=== PATIENT | female | born 1990 | race Caucasian/White ===

== ENCOUNTER 2022-04-18 21:20 | Emergency (ER) | payer OTHER, SELFPAY ==
[2022-04-18] MEDS ORDERED: KETOROLAC 30 MG/ML INJ ONE (21:53)
[2022-04-18] MEDS ORDERED: LIDOCAINE 4% PATCH ONE (23:39)
--- NOTE | 2022-04-18 23:56 | EDPHYS ---
Physician Documentation [facility] Name: Marimar Guo Age: 31 yrs Sex: Female : 1990 Arrival Date: 04/18/2022 Time: 21:26 Bed 6 Private MD: ED Physician Brant Valente HPI: 04/18 22:00 This 31 yrs old Female presents to ER via Ambulatory with complaints of Shoulder Pain, cp Neck Pain, >24Hrs Old. 22:00 The patient or guardian complains of pain, that is acute. cp 22:00 left shoulder. Context: The patient reports no decreased range of motion. The patient cp reports no obvious deformity. Patient reports falling asleep while breast feeding child and having pain after waking. Onset: The symptoms/episode began/occurred 2 day(s) ago. Modifying factors: The symptoms are aggravated by movement. Associated signs and symptoms: Pertinent positives: chest pain, neck pain, Pertinent negatives: abdominal pain, dyspnea, Numbness in left hand and left arm Weakness in left hand and left arm. Severity of symptoms: in the emergency department the symptoms are unchanged, despite home interventions. Historical: - Allergies: 21:32 No Known Allergies; as6 - Home Meds: 21:32 None [Active]; as6 - PMHx: 21:32 None; as6 - PSHx: 21:32 D\T\C; as6 - Immunization history:: Client reports having NOT received the Covid vaccine. - Social history:: Smoking status: Reported history of juuling and/or vaping. ROS: 22:05 Constitutional: Negative for body aches, chills, fever, poor PO intake. cp 22:05 Eyes: Negative for injury, pain, redness, and discharge. cp 22:05 ENT: Negative for drainage from ear(s), ear pain, sore throat, difficulty swallowing, difficulty handling secretions. 22:05 Neck: Positive for pain with movement, pain at rest, stiffness, Negative for injury or acute deformity. 22:05 Cardiovascular: Positive for chest pain. 22:05 Respiratory: Negative for cough, shortness of breath, wheezing. 22:05 Abdomen/GI: Negative for abdominal pain, nausea and vomiting. 22:05 Neuro: Negative for 22:05 All other systems are negative. Exam: 22:10 Constitutional: The patient appears in no acute distress, alert, awake, cp non-diaphoretic, non-toxic, well developed, well nourished. 22:10 Head/Face: Normocephalic, atraumatic. cp 22:10 Eyes: Periorbital structures: appear normal, Conjunctiva: normal, no exudate, no injection, Sclera: no appreciated abnormality, Lids and lashes: appear normal, bilaterally. 22:10 ENT: External ear(s): are unremarkable, Nose: is normal, Mouth: Lips: moist, Oral mucosa: pink and intact, moist, Posterior pharynx: Airway: no evidence of obstruction, patent. 22:10 Neck: ROM/movement: is normal, is supple, without pain, no range of motions limitations, no nuchal rigidity. 22:10 Chest/axilla: Inspection: normal, Palpation: crepitus, is not appreciated, tenderness, is not appreciated. 22:10 Cardiovascular: Rate: normal, Rhythm: regular, Pulses: Pulses are 2+ in right radial artery and left radial artery. JVD: is not appreciated. 22:10 Respiratory: the patient does not display signs of respiratory distress, Respirations: normal, no use of accessory muscles, no retractions, labored breathing, is not present, Breath sounds: are clear throughout, no decreased breath sounds, no stridor, no wheezing. 22:10 Abdomen/GI: Inspection: abdomen appears normal, Palpation: abdomen is soft and non-tender, in all quadrants. 22:10 Back: pain, that is moderate, of the left trapezius and left scapular area, ROM is painful, with all movement. 22:10 Musculoskeletal/extremity: Extremities: grossly normal except: noted in the left shoulder: pain, tenderness, There is no evidence of decreased ROM, deformity, ROM: full passive range of motion, in the left shoulder, limited passive range of motion due to pain, in the left shoulder, the left hand and left arm Sensation intact. 22:10 Skin: cellulitis, is not appreciated, no rash present. 22:10 Neuro: Orientation: to person, place \T\ time. Mentation: is normal, Motor: moves all fours, strength is normal, Sensation: is normal. Vital Signs: 00:00 BP 100 / 62; Pulse 65; Resp 17; Pulse Ox 100% on R/A; ll3 21:28 BP 113 / 73; Pulse 89; Resp 18 S; Temp 97.8(O); Pulse Ox 100% on R/A; Weight 63.5 kg as6 (R); Height 5 ft. 5 in. (165.10 cm) (R); Pain 8/10; 22:07 BP 100 / 60; kl 21:28 Body Mass Index 23.30 (63.50 kg, 165.10 cm) as6 MDM: 21:38 Patient medically screened. cp 22:00 Differential diagnosis: tendonitis, muscle strain, pneumothorax. cp 23:55 Data reviewed: vital signs, nurses notes, radiologic studies, plain films. cp 23:55 Test interpretation: by ED physician or midlevel provider: plain radiologic studies. cp Counseling: I had a detailed discussion with the patient and/or guardian regarding: the historical points, exam findings, and any diagnostic results supporting the discharge/admit diagnosis, radiology results, the need for outpatient follow up, a family practitioner, to return to the emergency department if symptoms worsen or persist or if there are any questions or concerns that arise at home. Response to treatment: the patient's symptoms have mildly improved after treatment, and as a result, I will discharge patient. 04/18 21:49 Order name: XRAY Shoulder LEFT 2 view cp 04/18 23:57 Order name: Sling; Complete Time: 00:19 cp Administered Medications: 21:58 Drug: TORadol (ketorolac) 30 mg Route: IM; Site: right ventrogluteal; kl 04/19 00:30 Follow up: Response: No adverse reaction; No change in condition ll3 00:13 Drug: Lidoderm Patch 5 % (700 mg/patch) 1 patches Route: Topical; Site: affected area; ll3 00:30 Follow up: Response: No adverse reaction ll3 00:27 Drug: Tylenol 650 mg Route: PO; ll3 00:31 Follow up: Response: No adverse reaction; Medication administered at discharge. ll3 Disposition Summary: 04/18/22 23:55 Discharge Ordered Location: Home cp Problem: new cp Symptoms: have improved cp Condition: Stable cp Diagnosis - Dorsalgia, unspecified cp - Pain in left shoulder cp Followup: cp - With: Private Physician - When: 2 - 3 days - Reason: Recheck today's complaints Discharge Instructions: - Discharge Summary Sheet cp - Acute Back Pain, Adult cp - Shoulder Pain cp - Shoulder Range of Motion Exercises cp - How to Use Cold Therapy cp - Heat Therapy cp Forms: - Medication Reconciliation Form cp - Thank You Letter cp - Antibiotic Education cp - Prescription Opioid Use cp Prescriptions: - Cyclobenzaprine 10 mg Oral Tablet - take 1 tablet by ORAL route every 8 hours As needed; 20 tablet; Refills: 0, cp Product Selection Permitted - Diclofenac Sodium 75 mg Oral tablet,delayed release (DR/EC) - take 1 tablet by ORAL route 2 times per day; 20 tablet; Refills: 0, Product cp Selection Permitted - Lidoderm 5 % Topical adhesive patch,medicated - apply 1 patch by TOPICAL route once daily; 7 patch; Refills: 0, Product cp Selection Permitted Signatures: Dispatcher [employer] EDMS Lisa Lopez RN RN Valente Norris PA PA cp Robe Nelson RN RN as6 Fan Conn RN RN ll3 Corrections: (The following items were deleted from the chart) 23:22 04/18 22:00 Associated signs and symptoms: Pertinent positives: chest pain, neck pain, cp Pertinent negatives: abdominal pain, dyspnea, Numbness in left hand and left arm Weakness in left hand and left arm cp
--- NOTE | 2022-04-18 23:56 | ER ---
Nurse's Notes [facility] Name: Marimar Guo Age: 31 yrs Sex: Female : 1990 Arrival Date: 04/18/2022 Time: 21:26 Bed 6 Private MD: Diagnosis: Dorsalgia, unspecified;Pain in left shoulder Presentation: 04/18 21:28 Chief complaint: Patient states: "2 days ago I was breast feeding my son and I fell as6 asleep wrong on my shoulder and the pain is just getting worse". Coronavirus screen: At this time, the client does not indicate any symptoms associated with coronavirus-19. Ebola Screen: No symptoms or risks identified at this time. Initial Sepsis Screen: Does the patient meet any 2 criteria? No. Patient's initial sepsis screen is negative. Does the patient have a suspected source of infection? No. Patient's initial sepsis screen is negative. Risk Assessment: Do you want to hurt yourself or someone else? Patient reports no desire to harm self or others. Onset of symptoms was April 16, 2022. 21:28 Acuity: DARA 4 as6 21:28 Method Of Arrival: Ambulatory as6 Triage Assessment: 21:33 General: Appears in no apparent distress. Behavior is calm, cooperative. Pain: as6 Complains of pain in left arm. Historical: - Allergies: 21:32 No Known Allergies; as6 - Home Meds: 21:32 None [Active]; as6 - PMHx: 21:32 None; as6 - PSHx: 21:32 D\\T\\C; as6 - Immunization history:: Client reports having NOT received the Covid vaccine. - Social history:: Smoking status: Reported history of juuling and/or vaping. Screenin/26 00:29 Abuse screen: Denies threats or abuse. Denies injuries from another. Nutritional ll3 screening: No deficits noted. Tuberculosis screening: No symptoms or risk factors identified. Fall Risk None identified. Assessment: 04/18 22:00 General: Appears in no apparent distress. uncomfortable, Behavior is cooperative, ll3 anxious. Pain: Complains of pain in left arm. Neuro: Level of Consciousness is awake, alert, obeys commands, Oriented to person, place, time, situation. Derm: Skin is pink, warm \\T\\ dry. Musculoskeletal: Circulation, motion, and sensation intact. Reports pain in left arm. 04/19 00:00 Reassessment: No changes from previously documented assessment. Patient and/or family ll3 updated on plan of care and expected duration. Pain level reassessed. Patient is alert, oriented x 3, equal unlabored respirations, skin warm/dry/pink. Vital Signs: 04/18 00:00 BP 100 / 62; Pulse 65; Resp 17; Pulse Ox 100% on R/A; ll3 21:28 BP 113 / 73; Pulse 89; Resp 18 S; Temp 97.8(O); Pulse Ox 100% on R/A; Weight 63.5 kg as6 (R); Height 5 ft. 5 in. (165.10 cm) (R); Pain 8/10; 22:07 BP 100 / 60; kl 21:28 Body Mass Index 23.30 (63.50 kg, 165.10 cm) as6 ED Course: 21:26 Patient arrived in ED. bp1 21:32 Triage completed. as6 21:33 Arm band placed on. as6 21:36 Valente Tovar PA is PHCP. cp 21:36 Valente Guo MD is Attending Physician. cp 22:42 XRAY Shoulder LEFT 2 view In Process Unspecified. EDMS 04/19 00:29 Patient has correct armband on for positive identification. Placed in gown. Bed in low ll3 position. Call light in reach. Side rails up X 1. 00:29 No provider procedures requiring assistance completed. Patient did not have IV access ll3 during this emergency room visit. Administered Medications: 04/18 21:58 Drug: TORadol (ketorolac) 30 mg Route: IM; Site: right ventrogluteal; kl 04/19 00:30 Follow up: Response: No adverse reaction; No change in condition ll3 00:13 Drug: Lidoderm Patch 5 % (700 mg/patch) 1 patches Route: Topical; Site: affected area; ll3 00:30 Follow up: Response: No adverse reaction ll3 00:27 Drug: Tylenol 650 mg Route: PO; ll3 00:31 Follow up: Response: No adverse reaction; Medication administered at discharge. ll3 Medication: 00:30 VIS not applicable for this client. ll3 Outcome: 04/18 23:55 Discharge ordered by MD. parisi 04/19 00:29 Discharged to home ambulatory. ll3 Condition: stable Discharge instructions given to patient, Instructed on discharge instructions, follow up and referral plans. medication usage, Demonstrated understanding of instructions, follow-up care, medications, Prescriptions given X 3. 00:34 Patient left the ED. ll3 Signatures: Dispatcher [employer] EDMS Lisa Lopez RN RN Valente Norris PA PA cp [place]ia[place], Brittany bp1 Slawson, Ashby, RN RN as6 Fan Conn RN RN ll3
[2022-04-19] MEDS ORDERED: ACETAMINOPHEN 325 MG TABLET ONE (00:25)
[2022-04-19 01:17] VITALS: TEMP 97.8; O2SAT 100
[2022-04-19 01:18] VITALS: BP 100/60
--- NOTE | 2022-04-19 13:46 | RAD REPORT ---
EXAM DESCRIPTION: RAD - Shoulder Left 2 View - 04/18/2022 10:40 pm CLINICAL HISTORY: PAIN. COMPARISON: None. TECHNIQUE: Two views of the left shoulder were obtained: AP internal and external rotation radiograp hs. FINDINGS: No acute fracture identified. Glenohumeral joint alignment is maintained. No acromioclavic ular joint widening. IMPRESSION: No acute osseous abnormality identified. Electronically signed by: Lorraine Bojorquez MD 04/18/2022 11:54 PM CDT Due to temporary technical issues with the PACS/Fluency reporting system, reports are being signed by the in house radiologists without review as a courtesy to insure prompt reporting. The interpreting radiologist is fully responsible for the content of the report.
== END 2022-04-19 00:34 | disposition home or self-care (01) ==
LOC: ER 21:20
DX: M54.9 Dorsalgia, unspecified (principal); M25.512 Pain in left shoulder; R07.9 Chest pain, unspecified
CPT/HCPCS: 73030; 96372; 99283; J2001